=== PATIENT | female | born 1990 | race Two or more races ===

== ENCOUNTER 2024-10-31 15:08 | Emergency (ER) | payer MEDICAID, SELFPAY ==
--- NOTE | 2024-10-31 15:12 | XR_ITS ---
Examination: OB Transvaginal ultrasound of the pelvis, complete Technique: Transvaginal sonographic images pelvis performed using sanchez scale imaging Exam date and time: October 31, 2024, 1601 hours INDICATIONS: Early by history with vaginal bleeding beginning 5 days ago. FINDINGS: Uterus 10.7 cm CRL 1.0 cm corresponds to 7 weeks 0 days gestational age. Cardiac motion 141 BPM. Right ovary 5.0 cm arterial flow 3.8 cm cyst Left ovary 2.6 cm arterial flow IMPRESSION: Viable intrauterine gestation 7 weeks 0 days.
[2024-10-31 15:15] VITALS: BP 157/84; PULSE 98; RESP 18; TEMP 36.6; O2SAT 97; BMI 29.3
[2024-10-31 15:58] LABS: Basophils # (Auto) 0.1 Thou/mm3 (0.0-0.2); Basophils % (Auto) 0 % (0-2.5); Eosinophils # (Auto) 0.1 Thou/mm3 (0.0-0.5); Eosinophils % (Auto) 0 % (0-10); Hematocrit 38.7 % (36.0-46.0); Hemoglobin 13.5 g/dL (12.0-16.0); Immature Granulocytes Auto 0.11 Thou/mm3 (0.00-0.00); Lymphocytes # (Auto) 3.3 Thou/mm3 (1.0-4.8); Lymphocytes % (Auto) 16 % (10-50); Mean Corpuscular HGB Conc 34.9 g/dl (31.0-37.0); Mean Corpuscular Hemoglobin 32.7 pg (25.0-35.0); Mean Corpuscular Volume 94 fL (80-100); Monocytes # (Auto) 1.3 Thou/mm3 (0.0-0.8); Monocytes % (Auto) 6 % (0-12); Neutrophils # (Auto) 15.8 Thou/mm3 (1.8-7.7); Neutrophils % (Auto) 77 % (37-80); Nucleated Red Blood Cell # 0.00 Thou/mm3 (0.00-0.00); Nucleated Red Blood Cell % 0 /100 WBC (0); Platelet Count 321 Thou/mm3 (140-440); RDW Standard Deviation 42.5 fL (36.4-46.3); Red Blood Count 4.13 Miln/mm3 (4.00-5.20); White Blood Count 20.6 Thou/mm3 (3.6-11.0)
[2024-10-31 16:33] LABS: Alanine Aminotransferase 82 U/L (10-49); Albumin, Serum 4.2 gm/dL (3.5-5.0); Albumin/Globulin Ratio 1.6 (1.2-2.2); Alkaline Phosphatase 151 U/L (46-116); Anion Gap 11 (7-16); Aspartate Amino Transferase 34 U/L (0-34); BUN/Creatinine Ratio 10 Ratio (12-20); Bilirubin,Total 0.3 mg/dL (0.3-1.2); Blood Urea Nitrogen 7 mg/dL (9-23); Calcium 9.2 mg/dL (8.3-10.6); Calcium (Corrected) 9.2 mg/dL (8.5-10.1); Carbon Dioxide 20.1 mMol/L (20.0-31.0); Chloride 104 mMol/L (98-107); Creatinine (Component) 0.7 mg/dL (0.6-1.3); Estimated Creatinine Clearance 113.1 mL/min (>60); Globulin 2.6 gm/dL (2.3-3.5); Glucose 153 mg/dL (74-106); Osmolality,Calculated 271 (275-295); Potassium 3.7 mMol/L (3.4-5.1); Sodium 135 mMol/L (136-145); Total Protein 6.8 gm/dL (5.7-8.2); eGFR > 60 See Note
--- NOTE | 2024-10-31 16:40 | PD.EDRME ---
Rapid Medical Screening Exam RME Arrival date/time: 10/31/24 15:08 34-year-old female presents the emergency room today for complaint of vaginal bleeding patient reports being approximately 6 weeks Time Seen by Provider: 10/31/24 15:12 Vital signs: Vital Signs Temperature 97.9 F 10/31/24 15:15 Pulse Rate 98 10/31/24 15:15 Respiratory Rate 18 10/31/24 15:15 Blood Pressure 157/84 H 10/31/24 15:15 Pulse Oximetry (%) 97 10/31/24 15:15 Oxygen Delivery Method Room Air 10/31/24 15:15
[2024-10-31 16:57] LABS: Beta HCG,Quantitative 76807 mIU/mL (<5.0)
[2024-10-31 17:00] LABS: Collection Type, Urine Clean Catch
[2024-10-31 17:10] LABS: Glucose Estimated Average 103 mg/dL (80-131); Hemoglobin A1C 5.2 % Hgb (4.8-6.0)
[2024-10-31 17:37] LABS: Bacteria,Urine 1+; Bilirubin,Urine Negative (Negative); Blood,Urine 3+ (Negative); Clarity,Urine Clear (Clear/Hazy); Color,Urine Colorless (Lt Yel-Yel); Glucose, Urine Negative (Negative); Ketones,Urine Negative (Negative); Leukocyte Esterase,Urine Negative (Negative); Nitrite,Urine Negative (Negative); PH,Urine 7.0 (5.0-7.0); Protein,Urine Negative (Neg - Trace); RBC,Urine 2 /hpf (0-3); Specific Gravity,Urine 1.004 (1.001-1.035); Squamous Epithelial Cell,Urine 4 /hpf (0-5); Urobilinogen,Urine Negative mg/dL (0.0-1.0); WBC,Urine < 1 /hpf (0-5)
[2024-10-31 17:38] LABS: Culture Indicated,Urine Yes
[2024-10-31 17:44] VITALS: BP 120/74; PULSE 88; RESP 18; TEMP 37; O2SAT 100
--- NOTE | 2024-10-31 18:46 | EDNOTE_ITS ---
ED Female Urogenital RME/HPI General Chief complaint: Vaginal Bleeding Stated complaint: 6WKS PREG W/BLEEDING Time Seen by Provider: 10/31/24 15:12 Arrival date/time: 10/31/24 15:08 RME / HPI RME / HPI Narrative: 10/31/24 15:08 34-year-old female presents the emergency room today for complaint of vaginal bleeding patient reports being approximately 6 weeks This section includes all my notes and documentations, including HPI, PE, and ED course. Perico Alberto MD HPI: 34 y/o female presents to ED c/o on and off vaginal spotting x 5 days. LMP was 09/10/2024. Denies fever and abdominal pain. No other complaints. ROS: All negative except as documented in HPI. Physical Exam: General: Alert and oriented. No acute distress when remaining still. Eyes: Conjunctivae and lids clear. ENT: No nasal congestion. Neck: Supple. Lungs: No respiratory distress. Abdomen: Soft and nontender. Normal bowel sounds. No distension. No rebound or guarding. Back: No CVA tenderness. Skin: Warm and dry. Neuro: Alert and oriented X 3. I reviewed all diagnostic test results: My review of the Transvaginal US report is: Viable intrauterine gestation 7 weeks 0 days. Blood tests and urine tests remarkable for UTI. At this point, diagnoses include: Threatened miscarriage, UTI. Treatment here included: Macrobid 100 mg. Recommended outpatient care. Based on my best medical judgment, made decision no further evaluation or treatment indicated at this time. Patient understands and agrees to the discharge instructions customized and printed, see below. Discharge Instructions from Dr. Alberto printed for you: 1.? After evaluation, your baby is doing well with good heart activity. 2.? Based on ultrasound today, gestational age is 7 weeks. 3.? Only time will tell what will happen. If bleeding and cramping worsen, you can have a miscarriage. If your symptoms stop, you can have successful . 4.? If you do have a miscarriage, we won't be able to save your baby. Under 20-24 weeks, we can't save the baby. 5.? No sexual activity until cleared by a doctor taking care of you. Take Macrobid to kill the bacteria in your urine.? Increase oral fluid to flush it out.? Maintain clear urine.? If dark or yellow, increase oral fluid. 6.? See a private doctor on 11/03/2024 for recheck and further care. Ask to review all test results and official radiology reports, to make sure you receive all necessary follow-ups and monitoring, including final urine culture results. Your hCG ( hormone level) was 76,807.? This doubles every 2 to 3 days in normal . 7.? Seek immediate medical care with intolerable pain, extremely heavy vaginal bleeding (soaking more than 3 pads per hour), or with any concerns. Perico Alberto MD Related Data Home Medications ?Medication ?Instructions ?Recorded ?Confirmed vits no.124-ferrous fum 1 tab PO QDAY 0 06/26/19 27 mg iron-folic acid 800 mcg tablet ( Vitamin) Previous Rx's ?Medication ?Instructions ?Recorded nitrofurantoin 100 mg PO BID #14 caps 10/31 monohydrate/macrocrystals 100 mg capsule (Macrobid) Allergies Allergy/AdvReac Type Severity Reaction Status Date / Time NKA* Allergy Uncoded 10/31/24 15:10 Review of Systems Review of Systems Systems Reviewed: All systems reviewed, normal except as documented Past Medical History Past Medical History OTHER HISTORY: Positive Hospitalization (CHILDBIRTH) ED Exam Narrative Physical exam: Refer to HPI above Course Quality Measures none Orders Category Date Time Status US OB transvaginal Stat Exams 10/31/24 15:12 Completed A1C [Glycohemoglobin w (eAG)] Stat Lab 10/31/24 15:43 Completed Beta HCG,Quantitative Stat Lab 10/31/24 15:43 Completed CBC Stat Lab 10/31/24 15:43 Completed Comprehensive Metabolic Panel Stat Lab 10/31/24 15:43 Completed UA, C/S IF [Urinalysis, C/S if Indicated] Stat Lab 10/31/24 16:50 Completed Urine Culture Stat Lab 10/31/24 16:50 Received Nitrofurantoin Macro [Macrobid] Med 10/31/24 18:45 Discontinued 100 mg PO X1 ONE Vital Signs Vital signs: Vital Signs Temperature 97.9 F 10/31/24 15:15 Pulse Rate 98 10/31/24 15:15 Respiratory Rate 18 10/31/24 15:15 Blood Pressure 157/84 H 10/31/24 15:15 Pulse Oximetry (%) 97 10/31/24 15:15 Oxygen Delivery Method Room Air 10/31/24 15:15 Urogenital - Female MDM Narrative MDM Narrative:: Scribe Attestation: I, Janeth Malissa, am scribing for and in the presence of Dr. Alberto. Provider Notation: Although this document has been carefully reviewed, there may still be some phonetic and other typographical errors.? These errors are purely grammatical due to imperfections in the software program and should not be construed in any way to? compromise the substance of the patient's medical care during this visit. 34 y/o female presents to ED c/o on and off vaginal spotting x 6 days. LMP was 09/10/2024 and has not begun care. [employer] opted not to begin care due to spotting. Denies fever and abdominal pain. No other complaints. Patient data External records reviewed:: [facility] previous records (Reviewed prior ED records from 01/17/24. Patient was seen for Abdominal pain.) Clinical information provided by:: patient and spouse () Social determinants that could affect healthcare access:: none Patient has the following chronic illnesses:: None reported How is presenting disease/condition affected by chronic disease/condition?: no chronic disease Evaluation data The following diagnostics were reviewed and interpreted by me:: lab results and radiology exam(s) Lab and/or radiology exams considered but not ordered:: None Interpretation Summary: I reviewed all diagnostic test results: My review of the Transvaginal US report is: Viable intrauterine gestation 7 weeks 0 days. Blood tests and urine tests remarkable for UTI. Medications / Prescriptions Medications or Prescriptions considered but not ordered:: None Medication administrations:: Medication Administration History Discontinued Medications Nitrofurantoin Macrocrystals (Nitrofurantoin Macro 100 Mg Capsule) 100 mg PO X1 ONE Stop: 10/31/24 18:46 Last Admin: 10/31/24 18:52 Dose: 100 mg Documented By: ROLLY Macrobid 100 mg Consultations Consultation(s) initiated? (list below): No Diagnosis Urogenital Female Differential Diagnosis: urinary tract infection, vaginitis, ruptured ovarian cyst, cystitis and dysmenorrhea Most likely diagnosis given after review of the tests above:: Threatened miscarriage, UTI Admission Indicated Admission indicated?: not indicated Explain why admission is indicated or not indicated:: With no condition needing emergent intervention, there was no indication for admission. Admission Request Was there a request for admission?: No Disposition Plan Disposition Plan: Discharge Discharge Attestation Discharge Attestation: The patient and all family members were given an opportunity to ask questions and understood the discharge instructions. Discharge instructions specifically effects, indications for sooner follow up or return to the emergency department, and the expected course of current diagnosis. Patient condition: Stable Discharge Plan Plan Patient Disposition: HOME (Self Care) Prescriptions/Referrals Prescriptions/Med Rec: New nitrofurantoin monohyd/m-cryst [Macrobid] 100 mg capsule 100 mg PO BID Qty: 14 0RF Rx Instructions: must administer with a meal/food No Action Vitamin 27 mg iron- 800 mcg Tablet 1 tab PO QDAY Referrals: Roberta Cespedes [Primary Care Provider] - In 1 week Problem List Clinical Impression: Threatened miscarriage, UTI (urinary tract infection) Patient/Caregiver Discharge Instructions Education Materials: ED Possible Miscarriage ..., ED CYSTITIS Female Adult Additional Instructions: Discharge Instructions from Dr. Alberto printed for you: 1.? After evaluation, your baby is doing well with good heart activity. 2.? Based on ultrasound today, gestational age is 7 weeks. 3.? Only time will tell what will happen. If bleeding and cramping worsen, you can have a miscarriage. If your symptoms stop, you can have successful . 4.? If you do have a miscarriage, we won't be able to save your baby. Under 20-24 weeks, we can't save the baby. 5.? No sexual activity until cleared by a doctor taking care of you. Take Macrobid to kill the bacteria in your urine.? Increase oral fluid to flush it out.? Maintain clear urine.? If dark or yellow, increase oral fluid. 6.? See a private doctor on 11/03/2024 for recheck and further care. Ask to review all test results and official radiology reports, to make sure you receive all necessary follow-ups and monitoring, including final urine culture results. Your hCG ( hormone level) was 76,807.? This doubles every 2 to 3 days in normal . 7.? Seek immediate medical care with intolerable pain, extremely heavy vaginal bleeding (soaking more than 3 pads per hour), or with any concerns. Instrucciones de zander de la Caroljennifer Alberto impresas para usted: 1. Despu?s de la evaluaci?n, lujan beb? se encuentra sandra y presenta buena actividad card?chloe. 2. Seg?n la ecograf?a de hoy, la edad gestacional es de 7 semanas. 3. Solo el tiempo dir? qu? suceder?. Si el sangrado y los c?licos empeoran, podr?a sufrir un aborto espont?meliton. Si los s?ntomas desaparecen, puede tener un embarazo exitoso. 4. Si sufre un aborto espont?meliton, no podremos salvar a lujan beb?. Si tiene menos de 20 a 24 semanas, no podremos salvarlo. 5. No tenga relaciones sexuales hasta que el m?dico que la atienda lo autorice. [place] Macrobid para eliminar las bacterias en la orina. Aumente la ingesta de l?quidos por v?a oral para eliminarlas. Mantenga la orina brittany. Si es oscura o amarilla, aumente la ingesta de l?quidos por v?a oral. 6. Consulte con un m?dico particular el 08/06/2024 para gael revisi?n y atenci?n adicional. Solicite la revisi?n de todos los resultados de las pruebas y los informes radiol?gicos oficiales para asegurarse de recibir todos los seguimientos y la monitorizaci?n necesarios, incluidos los resultados finales del urocultivo. Lujan nivel de hCG (hormona del embarazo) fue de 76.807. Courtney se duplica cada 2 o 3 d?as en un embarazo normal. 7. Busque atenci?n m?dica inmediata si presenta dolor insoportable, sangrado vaginal extremadamente abundante (que empape m?s de 3 toallas sanitarias por hora) o si tiene alguna inquietud. Print Language: Lebanese Stand Alone Forms: Teresa Award Info., Patient Portal Info Letter
[2024-10-31] MEDS: NITROFURANTOIN MACRO 100 MG CAPSULE PO (18:52)
== END 2024-10-31 19:17 | disposition home or self-care (01) ==
PROVIDERS: Nurse Practitioner Primary Care; Emergency Provider Emergency Medicine; PCP Physician Assistant
DX: O20.0 Threatened abortion (principal); O23.41 Unspecified infection of urinary tract in pregnancy, first trimester; N39.0 Urinary tract infection, site not specified; Z3A.01 Less than 8 weeks gestation of pregnancy
CPT/HCPCS: 36415; 76817; 80053; 81001; 83036; 84702; 85025; 87086; 99283; A9270